=== PATIENT | male | born 1960 | race Caucasian/White ===

== ENCOUNTER 2016-12-11 21:05 | Emergency (ER) | payer OTHER ==
[2016-12-11] MEDS ORDERED: TRAMADOL HCL 50 MG TABLET PO ONE (21:54)
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
[2016-12-11 22:07] VITALS: BP 125/80
== END 2016-12-11 22:05 | disposition home or self-care (01) ==
LOC: ER 21:05
DX: F19.939 Other psychoactive substance use, unspecified with withdrawal, unspecified (principal); F10.10 Alcohol abuse, uncomplicated
CPT/HCPCS: 99284